=== PATIENT | female | born 1970 | race Caucasian/White ===

== ENCOUNTER 2024-09-09 11:45 | Outpatient (OUT) | payer OTHER, SELFPAY ==
[2024-09-09 12:44] LABS: Thyroid Stimulating Hormone <0.358 uIU/mL (0.358-3.740)
== END 2024-09-09 11:46 | disposition home or self-care (01) ==
LOC: LAB 11:50
PROVIDERS: PCP Internal Medicine; Visit Provider Internal Medicine
DX: E06.3 Autoimmune thyroiditis (principal)
CPT/HCPCS: 36415; 84443